=== PATIENT | female | born 1990 | race Hispanic/Latino ===

== ENCOUNTER 2018-05-12 08:57 | Day surgery (SDC) | payer OTHER, SELFPAY ==
[2018-05-08 15:40] VITALS: BMI 19.8
[2018-05-12] VITALS (10 sets, daily range): BP systolic 98–121; BP diastolic 61–81; PULSE 65–104; RESP 12–16; TEMP 36–37; O2SAT 97–100; BMI 19.8
--- NOTE | 2018-05-12 07:49 | PM.OP.1 ---
Operative Date/Time/Diagnoses Date of procedure: 05/12/18 Time of procedure: 14:42 Pre-op diagnosis: Left foot hallux abductovalgus with bunion Post-op diagnosis: same Procedure & Clinicians Procedure: Left foot bunionectomy with first metatarsocuneiform joint fusion Same procedure as scheduled: Yes Indications: Painful left foot bunion Surgeon: Natty Roque Yes if Unassisted: Yes Anesthesia Type: General Operative Notes Closure Type: primary Specimen(s): none sent Implants & Drains: [place] 3-hole Lapidus standard plate, 3.5 and 4.0 screws, 3-0, 4-0 vicryl, 3-0 nylon Estimated Blood Loss (mL): 40 Blood products transfused: none Tourniquet time (min): 72 Procedure in detail: The patient was brought to the operating room and placed on the operative table in the supine position well-padded and appropriately aligned. A tourniquet was placed about the patient's left thigh. After induction of general anesthesia the foot and ankle were prepped and draped in the usual aseptic manner. After a check of anesthesia the TQ was inflated and an incision was made over the first metatarsophalangeal joint extending to the first metatarsocuneiform joint. The incision was deepened through subcutaneous tissues being careful to identify and retract all neural and vascular structures. All bleeders were cauterized and ligated as necessary. Incision was made over the 1st MTPJ capsule and reflecting this medially the enlarged medial eminence of the 1st metatarsal head was noted. With a saw I resected the enlarged medial eminence. Dissection was further carried down to the 1st metatarsal cuneiform joint where this was mobilized and the joint was entered. A saw was used to resect the cartilage off of the base of the 1st metatarsal and the distal aspect of the medial cuneiform. This was done at a slightly angled approach on the medial cuneiform to allow for closing down of the 1st intermetatarsal angle. Next the area was fish-scaled on either side of the former joint and subchondral drilling also was performed. The area was irrigated with normal saline and the 1st metatarsal was placed in its appropriate closed and corrected position. Care was taken not to elevate or plantar flex this too much and temporary fixation using a guidewire was placed across. This was checked under fluoroscopy and deemed to be in good corrected alignment. Using standard AO technique over the guidewire the 4 0 short threaded screw was placed and good lag and strength was accomplished. The guidewire was removed and again checked under fluoroscopy. The appropriate plate was picked and placed over the dorsal medial 1st MCJ. The appropriate screws were placed in nonlocking and a locking fashion for additional compression and strength. Again this was checked under C-arm and noted to be appropriate in all 3 planes. At this point it was noted that the alignment was good and the phalangeal osteotomy of the hallux it was not necessary. A medial capsulorrhaphy was performed to the 1st metatarsal phalangeal joint. And after copious amounts of irrigation the tourniquet was deflated and a prompt hyperemic response seen to the foot. Deep closure and subcutaneous closure performed with Vicryl and nylon to the skin. She is placed in a postoperative boot after of a mildly compressive sterile dressing was placed. Complications: none Condition: stable Disposition: PACU Plan for aftercare: Following a period of postoperative monitoring the patient be discharged home in care of her friend and she has been given and reviewed postoperative instructions. Keep the dressing dry and intact avoid ambulation to the foot , ice and elevate the foot when seated at home, DVT prevention techniques have been reviewed. Her 1st postop visibly dressing change and around the 3rd to 4th postoperative week. There will be a set of x-rays and then another 1 around the 6th week. Nonweightbearing until released to do so by myself.
[2018-05-12] MEDS: LACTATED RINGERS 1,000 ML 42 ML IV (09:36)
--- NOTE | 2018-05-12 11:42 | PM.PREOP ---
Pre-operative Note Interval Note Pre-op Check: Yes History & Physical Reviewed by Physician Changes: No
[2018-05-12] MEDS: MIDAZOLAM 2 MG/2 ML VIAL IV (12:05)
[2018-05-12] MEDS: CEFAZOLIN VIAL 1 GM in SODIUM CHLORIDE 0.9% 100 ML 200 ML IV (12:10)
--- NOTE | 2018-05-12 12:38 | SUR.OPER ---
Supine on padded OR bed, head on pillow, arms secured on padded arm boards at <90 degrees abduction, legs uncrossed, safety belt at thigh, tape over blanket over right lower leg, left leg draped free.
[2018-05-12] MEDS: BUPIVACAINE 0.5% (PF) VIAL 30 ML INJ (12:47)
--- NOTE | 2018-05-12 14:52 | SUR.PHASEI ---
STABLE PACU STAY, SHAKES RESOLVED WITH APPLICATION OF BARE HUGGAR.
[2018-05-12] MEDS: ONDANSETRON 4 MG/2 ML INJ IV (15:11)
--- NOTE | 2018-05-12 15:15 | SUR.PHASEII ---
PT BROUGHT TO OPD, ATE SOME APPLESAUCE, BECAME NAUSEATED AND MEDICATED WITH ONDANSETRON. L FOOT ELEVATED ICE BEHIND KNEE. FRIEND AT BEDSIDE, D/C INSTRUCTIONS DISCUSSED BOTH VOICED AN UNDERSTANDING.
[2018-05-12] MEDS: METOCLOPRAMIDE 10 MG/2 ML INJ IV (15:30)
--- NOTE | 2018-05-12 15:32 | SUR.PHASEII ---
pt still nauseated, reglan given.
--- NOTE | 2018-05-12 16:14 | SUR.PHASEII ---
LATE ENTRY: PT READY TO GO, VSS, NO FURTHER NAUSEA, DRESSING C/D/I, BOOT IN PLACE, ASSISTED PT TO DRESS, PT LEFT IN STABLE CONDITION.
== END 2018-05-12 15:50 | disposition home or self-care (01) ==
PROVIDERS: PCP Registered Nurse Diabetes Educator; Visit Provider Podiatrist
PROC: 0QBP0ZZ Excision of Left Metatarsal, Open Approach (ICD-10-PCS; CPT 28292; principal; 2018-05-12 10:45)
DX: M20.12 Hallux valgus (acquired), left foot (principal)
CPT/HCPCS: 28297; J0690; J1100; J1170; J2250; J2405; J2704; J2765

== ENCOUNTER 2019-02-02 06:49 | Day surgery (SDC) | payer OTHER, SELFPAY ==
[2019-01-25 12:09] VITALS: BMI 29.2
[2019-02-02] VITALS (8 sets, daily range): BP systolic 104–136; BP diastolic 69–79; PULSE 62–98; RESP 12–20; TEMP 36–36.8; O2SAT 98–99; BMI 29.2
[2019-02-02] MEDS: LACTATED RINGERS 1,000 ML 42 ML IV ×2 (07:24→08:53)
--- NOTE | 2019-02-02 07:39 | PM.PREOP ---
Pre-operative Note Interval Note History & Physical reviewed/Exam performed by Physician: Yes Changes to H&P: No
--- NOTE | 2019-02-02 07:41 | PM.OP.1 ---
Operative Date/Time/Diagnoses Date of procedure: 02/02/19 Time of procedure: 07:41 Pre-op diagnosis: Right hallux abductovalgus with bunion and tailor's bunionette Post-op diagnosis: same Procedure & Clinicians Procedure: Right first metatarsocuneiform fusion, right tailor's bunionectomy Same procedure as scheduled: Yes Indications: Painful recurrent bunion and tailor's bunionette. Conservative measures failed to alleviate her pain and she would like to undergo surgical intervention. Surgeon: Natty Moore Click Yes if Unassisted: Yes Anesthesia Type: General Operative Notes Closure Type: primary Specimen(s): none sent Prosthetic devices, grafts, tissues, transplants, or devices: [place] Lapidus plate, 3.5 (4) and 4.0 (cannulated) screws 4-0 vicryl, 3-0 nylon Applied: implant(s) Estimated Blood Loss (mL): 20 Blood products transfused: none Tourniquet time (min): 87 Procedure in detail: The patient was brought to the operating room and placed on the operative table in the supine position well-padded and appropriately aligned. A tourniquet was placed about the patient's right thigh. After induction of general anesthesia the foot and ankle were prepped and draped in the usual aseptic manner. After a check of anesthesia the TQ was inflated and an incision was made over the first metatarsocuneiform joint. The incision was deepened through subcutaneous tissues being careful to identify and retract all neural and vascular structures. All bleeders were cauterized and ligated as necessary. Dissection was further carried down to the 1st metatarsal cuneiform joint where this was mobilized and the joint was entered. A saw was used to resect the cartilage off of the base of the 1st metatarsal and the distal aspect of the medial cuneiform. This was done at a slightly angled approach on the medial cuneiform to allow for closing down of the 1st intermetatarsal angle. Next the area was fish-scaled on either side of the former joint and subchondral drilling also was performed. The area was irrigated with normal saline and the 1st metatarsal was placed in its appropriate closed and corrected position. Care was taken not to elevate or plantar flex this too much and temporary fixation using a guidewire was placed across. This was checked under fluoroscopy and deemed to be in good corrected alignment. Using standard AO technique over the guidewire the 4.0 short threaded screw was placed and good lag and strength was accomplished. The guidewire was removed and again checked under fluoroscopy. The appropriate plate was picked and placed over the dorsal medial 1st MCJ. The appropriate screws were placed in nonlocking and a locking fashion for additional compression and strength. Again this was checked under C-arm and noted to be appropriate in all 3 planes. At this point it was noted that the alignment was good and the phalangeal osteotomy of the hallux was not necessary. Final fluoroscopic views were taken. Next, an incision was made over the 5th metatarsal phalangeal joint. The incision was deepened through subcutaneous tissues being careful to identify and retract all vital neural and vascular structures. All bleeders were cauterized and ligated as necessary. The 5th MTPJ capsule was incised and this exposed the underlying enlarged 5th metatarsal lateral eminence. A saw was used to remove the lateral eminence and gently smooth the edges of the resection. The area was irrigated with copious amounts of normal sterile saline. Capsule closure was performed using 4-0 Vicryl. The tourniquet was deflated. A prompt hyperemic response was seen to the foot. Subcutaneous closure to both incisions was performed using Vicryl and nylon to the skin. A sterile lightly compressive dressing was placed on the foot. Pt was then placed in a postoperative boot and transferred to PACU with vital signs stable and vascular status intact to the foot. Complications: none Condition: stable Disposition: PACU Plan for aftercare: Following a period of postoperative monitoring, the patient be discharged home on written and oral postoperative instructions including keeping the dressing dry and intact, avoiding ambulation on the foot, icing and elevating the foot when seated home. DVT prevention techniques have been reviewed. For the 1st postoperative visit the dressing will be changed and close to the 2-3rd postoperative week we will likely remove the sutures. X-rays around s/p wk 4, and consider possible limited weightbearing between weeks 4-6
--- NOTE | 2019-02-02 08:13 | SUR.OPER ---
Supine on padded OR bed, head on pillow, arms secured on padded arm boards at <90 degrees abduction, legs uncrossed, safety belt at abdomen tape over blanket over left lower leg.
[2019-02-02] MEDS: BUPIVACAINE 0.5% (PF) VIAL 30 ML INJ (08:23)
[2019-02-02] MEDS: CEFAZOLIN 1 GM VIAL IV (08:24)
--- NOTE | 2019-02-02 11:47 | SUR.PHASEII ---
Assumed care from [facility], pt wished to be discharged, no questions, no nausea no pain. operative site remained c/d/i. Pt's asissted pt to dress, pt left when ready and in stable condition.
== END 2019-02-02 11:45 | disposition home or self-care (01) ==
PROVIDERS: PCP Registered Nurse Diabetes Educator; Visit Provider Podiatrist
PROC: (CPT 28740; principal; 2019-02-02 07:45)
PROC: 0QBN0ZZ Excision of Right Metatarsal, Open Approach (ICD-10-PCS; CPT 28292; 2019-02-02 07:45)
DX: M20.11 Hallux valgus (acquired), right foot (principal); M21.621 Bunionette of right foot
CPT/HCPCS: 28740; 28110; J0690; J1100; J2250; J2405; J2704; J3010